=== PATIENT | male | born 1985 | race Two or more races ===

== ENCOUNTER 2018-10-04 13:06 | Emergency (ER) | payer SELFPAY ==
[~2018-10-04] VITALS: Ht 162.6 cm; Wt 72.6 kg
--- NOTE | 2018-10-04 13:08 | NUR ---
BIB SELF, W C/O L SIDED CHEST PAIN, N/V x 15MIN AGO. TO ER BED 10, HOOKED TO MONITOR, AWAITING MD TALAVERA
--- NOTE | 2018-10-04 13:26 | NUR ---
PA MAIN AT BEDSIDE
[2018-10-04 13:47] LABS: BASOPHILS % (AUTO) 0.3 % (0.0-2.0); EOSINOPHILS % (AUTO) 0.2 % (0.0-6.0); HEMATOCRIT 48 % (39-51); HEMOGLOBIN 16.4 g/dL (13.5-17.5); LYMPHOCYTES # (AUTO) 2.3 /CMM (0.8-4.8); LYMPHOCYTES % (AUTO) 28.5 % (20.0-44.0); MEAN CORPUSCULAR HGB CONC 35 g/dl (31.0-36.0); MEAN CORPUSCULAR VOLUME 89 fL (80-96); MONOCYTES # (AUTO) 0.6 /CMM (0.1-1.30); MONOCYTES % (AUTO) 7.6 % (2.0-12.0); NEUTROPHILS # (AUTO) 5.2 /CMM (1.8-8.9); NEUTROPHILS % (AUTO) 63.4 % (43.0-81.0); PLATELET COUNT (AUTO) 234 /CMM (150-450); RED BLOOD CELL COUNT(AUTO) 5.32 MIL/uL (4.5-6.0); WHITE BLOOD COUNT (AUTO) 8.2 K/uL (4.3-11.0)
[2018-10-04] MEDS ORDERED: LORAZEPAM 1 MG TABLET ONE (13:51)
[2018-10-04] MEDS ORDERED: ASPIRIN 325 MG TABLET ONE (13:52)
[2018-10-04 13:54] LABS: CALCIUM, SERUM 9.4 mg/dL (8.5-10.1); CARBON DIOXIDE 32 mmol/L (21-32); CHLORIDE 97 mmol/L (98-107); GLUCOSE 172 mg/dL (74-106); POTASSIUM 2.9 mmol/L (3.5-5.1); SODIUM SERUM 137 mmol/L (136-145)
[2018-10-04 13:55] LABS: CREATININE 0.9 mg/dL (0.6-1.3); UREA NITROGEN, BLOOD 18 mg/dL (7-18)
--- NOTE | 2018-10-04 13:55 | NUR ---
ONGOING CHEST XRAY
[2018-10-04] MEDS ORDERED: LORAZEPAM 1 MG TABLET PO ONE (14:00)
[2018-10-04] MEDS ORDERED: ASPIRIN 325 MG TABLET PO ONE (14:00)
[2018-10-04] MEDS ORDERED: POTASSIUM CHLORIDE 20 MEQ TAB.PRT.SR PO ONE ×2 (15:00→15:04)
[2018-10-04] MEDS ORDERED: ONDANSETRON 4 MG TAB.RAPDIS PO ONE (15:00)
[2018-10-04] MEDS ORDERED: ONDANSETRON 4 MG TAB.RAPDIS ONE (15:03)
--- NOTE | 2018-10-04 15:17 | NUR ---
PT VERBALIZED THAT HE FELT BETTER. PT STATED "LESS NAUSEOUS AND NO MORE VOMITING".
--- NOTE | 2018-10-04 15:28 | NUR ---
IV removed. Catheter intact and site benign. Pressure and 4x4 applied to site. No bleeding noted.Patient discharged to home in stable condition. Written and verbal after care instructions given. Patient verbalizes understanding of instruction.
[2018-10-04 15:31] VITALS: BP 128/92
== END 2018-10-04 15:32 | disposition home or self-care (01) ==
LOC: ER 13:07
DX: E11.9 Type 2 diabetes mellitus without complications (principal); K21.9 Gastro-esophageal reflux disease without esophagitis; F41.9 Anxiety disorder, unspecified; E87.6 Hypokalemia; I10 Essential (primary) hypertension
CPT/HCPCS: 36415; 71045-TC; 80048-TC; 84484-TC; 85025-TC; 85730-TC; A4606; Q0162; Z7610